=== PATIENT | male | born 1990 | race Caucasian/White ===

== ENCOUNTER 2019-06-23 15:07 | Emergency (ER) | payer SELFPAY ==
[~2019-06-23] VITALS: Ht 180.3 cm; Wt 76.0 kg
[~2019-06-23 15:07] MED LIST: BISM-34 PO; ONDA4TAB14 PO
[2019-06-23 15:16] VITALS: Ht 180.3 cm; Wt 76.0 kg
[2019-06-23] MEDS ORDERED: ONDANSETRON 4 MG INJ IV STA (16:18)
[2019-06-23] MEDS ORDERED: FAMOTIDINE 20 MG INJ IV STA (16:18)
[2019-06-23] MEDS ORDERED: SOD CHLORIDE 0.9% 1,000 ML IV STA (16:18)
[2019-06-23 18:38] VITALS: BP 124/73; PULSE 64; RESP 17
--- NOTE | 2019-06-30 14:27 | ERD ---
ER Documentation Chief Complaint Chief Complaint N/V SINCE 1100 TODAY HPI This is a 28-year-old male presents to the emergency department complaining of intermittent nausea, vomiting, and diarrhea since 11 AM today. He states he had approximately 20 episodes of diarrhea today. He was drinking significant amount last night. He had about 6 tequila drinks. He denies any hematemesis, abdominal pain, fevers, chills, or other symptoms at this time. He does localize some pain to the midepigastric region which she describes as a burning sensation. ROS All systems reviewed and are negative except as per history of present illness. Medications Home Meds Active Scripts Bismuth Subsalicylate* (Bismuth Subsalicylate*) 262 Mg/15 Ml Oral.susp, 15 ML PO Q6 PRN for DIARRHEA, #1 BOTTLE Prov:CHELLY SHIN PA-C 06/23/19 Ondansetron (Ondansetron Odt) 4 Mg Tab.rapdis, 4 MG PO Q6H PRN for NAUSEA AND/OR VOMITING, #10 TAB Prov:CHELLY SHIN PA-C 06/23/19 Allergies Allergies: Coded Allergies: No Known Allergy (Unverified , 06/23/19) PMhx/Soc Medical and Surgical Hx: pt denies Medical Hx, pt denies Surgical Hx History of Surgery: No Hx Neurological Disorder: No Hx Respiratory Disorders: No Hx Cardiac Disorders: No Hx Psychiatric Problems: No Hx Miscellaneous Medical Probl: No Hx Alcohol Use: Yes (Occasionally) Hx Substance Use: No Hx Tobacco Use: No Smoking Status: Never smoker FmHx Family History: No diabetes Physical Exam Physical Exam Const: No acute distress Head: Atraumatic Eyes: Normal Conjunctiva ENT: Normal External Ears, Nose and Mouth. Neck: Full range of motion. No meningismus. Resp: Clear to auscultation bilaterally Cardio: Regular rate and rhythm, no murmurs Abd: Soft, non tender, non distended. Normal bowel sounds Skin: No petechiae or rashes Back: No midline or flank tenderness Ext: No cyanosis, or edema Neur: Awake and alert Psych: Normal Mood and Affect Results 24 hrs Laboratory Tests Test 06/23/19 16:30 White Blood Count 15.1 10^3/ul Red Blood Count 4.76 10^6/ul Hemoglobin 14.6 g/dl Hematocrit 43.1 % Mean Corpuscular Volume 90.5 fl Mean Corpuscular Hemoglobin 30.7 pg Mean Corpuscular Hemoglobin Concent 33.9 g/dl Red Cell Distribution Width 11.5 % Platelet Count 231 10^3/UL Mean Platelet Volume 10.2 fl Immature Granulocytes % 0.500 % Neutrophils % 87.9 % Lymphocytes % 3.9 % Monocytes % 7.3 % Eosinophils % 0.1 % Basophils % 0.3 % Nucleated Red Blood Cells % 0.0 /100WBC Immature Granulocytes # 0.070 10^3/ul Neutrophils # 13.3 10^3/ul Lymphocytes # 0.6 10^3/ul Monocytes # 1.1 10^3/ul Eosinophils # 0.0 10^3/ul Basophils # 0.0 10^3/ul Nucleated Red Blood Cells # 0.0 10^3/ul Sodium Level 146 mmol/L Potassium Level 4.2 mmol/L Chloride Level 104 mmol/L Carbon Dioxide Level 27 mmol/L Anion Gap 15 Blood Urea Nitrogen 14 mg/dl Creatinine 1.03 mg/dl Est Glomerular Filtrat Rate mL/min > 60 mL/min Glucose Level 100 mg/dl Calcium Level 9.8 mg/dl Total Bilirubin 1.9 mg/dl Direct Bilirubin 0.00 mg/dl Indirect Bilirubin 1.9 mg/dl Aspartate Amino Transf (AST/SGOT) 50 IU/L Alanine Aminotransferase (ALT/SGPT) 37 IU/L Alkaline Phosphatase 65 IU/L Total Protein 9.3 g/dl Albumin 5.2 g/dl Globulin 4.10 g/dl Albumin/Globulin Ratio 1.26 Lipase 60 U/L Current Medications Medications Dose Sig/Yoav Start Time Status Last (Trade) Ordered Route PRN Stop Time Admin Dose Reason Admin Sodium 1,000 ml @ Q1H STAT 06/23/19 DC 06/23/19 Chloride 1,000 mls/hr IV 16:18 16:28 06/23/19 17:17 Ondansetron 4 mg ONCE STAT 06/23/19 DC 06/23/19 HCl (Zofran IV 16:18 16:28 Inj) 06/23/19 16:20 Famotidine 20 mg ONCE STAT 06/23/19 DC 06/23/19 (Pepcid Iv) IV 16:18 16:28 06/23/19 16:20 Procedures/MDM 28-year-old male presents to the emergency department with signs and symptoms most consistent with gastritis secondary to alcohol intoxication last night. Patient did have a white blood cell count approximately 15, likely reactive in nature. The remainder of the laboratory testing was within normal limits. Naye ent's abdominal examination was benign. Patient was administered IV Pepcid and Zofran with significant improvement of his symptoms. On reevaluation he states he feels improved. Abdominal Ct Risks and Benefits: CT Scan of the abdomen was discussed with all present and we agree at this time that a trial of watchful waiting is most appropriate. As the patient shows no evidence at this time of acute abdomen. Patient's gastrointestinal symptoms have stabilized while in the department. No evidence of severe dehydration, sepsis, or surgical abdomen. Extensive discussion with family and patient that occult disease cannot be ruled out. 8 hour recheck for repeat abdominal exam is planned. Departure Diagnosis: Primary Impression: Nausea vomiting and diarrhea Condition: Fair Patient Instructions: Food Poisoning Or Gastroenteritis (6Y-Adult) Referrals: [facility] YOU HAVE RECEIVED A MEDICAL SCREENING EXAM AND THE RESULTS INDICATE THAT YOU DO NOT HAVE A CONDITION THAT REQUIRES URGENT TREATMENT IN THE EMERGENCY DEPARTMENT. FURTHER EVALUATION AND TREATMENT OF YOUR CONDITION CAN WAIT UNTIL YOU ARE SEEN IN YOUR DOCTORS OFFICE WITHIN THE NEXT 1-2 DAYS. IT IS YOUR RESPONSIBILITY TO MAKE AN APPOINTMENT FOR FOLOW-UP CARE. IF YOU HAVE A PRIMARY DOCTOR --you should call your primary doctor and schedule an appointment IF YOU DO NOT HAVE A PRIMARY DOCTOR YOU CAN CALL OUR PHYSICIAN REFERRAL HOTLINE AT IF YOU CAN NOT AFFORD TO SEE A PHYSICIAN YOU CAN CHOSE FROM THE FOLLOWING [facility] [address] [facility] [address] [facility] [facility] [address] [facility] [address] [facility] [address] [facility] [facility]. [address] Additional Instructions: Call your primary care doctor TOMORROW for an appointment during the next 1-2 days.See the doctor sooner or return here if your condition worsens before your appointment time. CHELLY SHIN PA-C Jun 30, 2019 14:27
== END 2019-06-23 18:38 | disposition home or self-care (01) ==
LOC: FTE 15:07
DX: R11.2 Nausea with vomiting, unspecified (principal); R19.7 Diarrhea, unspecified
CPT/HCPCS: 36415; 80053; 83690; 85025; 96374; 96375; 99284; J2405; J7030